=== PATIENT | female | born 2005 | race Caucasian/White ===

== ENCOUNTER 2024-02-19 08:57 | Emergency (ER) | payer OTHER, SELFPAY ==
[2024-02-19 09:11] VITALS: BP 127/73; PULSE 104; RESP 15; TEMP 36.9; O2SAT 96; BMI 25.9
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
[2024-02-19 11:33] VITALS: PULSE 90; RESP 16; O2SAT 100
== END 2024-02-19 11:34 | disposition home or self-care (01) ==
PROVIDERS: Emergency Provider Physician Assistant Medical
DX: R51.9 Headache, unspecified (principal); V89.2XXA Person injured in unspecified motor-vehicle accident, traffic, initial encounter
CPT/HCPCS: 99281